=== PATIENT | female | born 1965 | race Caucasian/White ===

== ENCOUNTER 2018-09-17 09:17 | Day surgery (SDC) | payer OTHER ==
[2018-09-17] MEDS ORDERED: MIDAZOLAM 1 MG/ML 2 ML INJ (10:41)
[2018-09-17] MEDS ORDERED: FENTAnyl 50 MCG/ML VIAL ×2 (10:41)
== END 2018-09-17 11:09 | disposition home or self-care (01) ==
LOC: GIL 09:17
DX: Z12.11 Encounter for screening for malignant neoplasm of colon (principal); K64.8 Other hemorrhoids
CPT/HCPCS: 45378; 84703